=== PATIENT | male | born 1935 | race Caucasian/White ===

== ENCOUNTER 2017-10-06 07:32 | Outpatient (CLI) | payer MEDICARE, OTHER ==
[2014-09-29 10:08] VITALS: BP 112/55
[2017-10-06 08:04] LABS: MEAN CORPUSCULAR HEMOGLOBIN 30.7 pg (28.0-34.0); MEAN CORPUSCULAR VOLUME 94.4 fl (80.0-100.0)
[2017-10-06 08:29] LABS: eGFR (African) > 60; eGFR (Non-African) > 60
== END 2017-10-06 07:40 ==
LOC: LAB 07:32
PROVIDERS: ATTEND Internal Medicine Cardiovascular Disease
DX: E78.00 Pure hypercholesterolemia, unspecified (principal); I25.10 Atherosclerotic heart disease of native coronary artery without angina pectoris; I26.99 Other pulmonary embolism without acute cor pulmonale; I48.2 Chronic atrial fibrillation
CPT/HCPCS: 36415; 80053; 80061; 84443; 85027

== ENCOUNTER 2018-04-30 14:30 | Outpatient (CLI) | payer MEDICARE, OTHER ==
[2014-09-29 10:08] VITALS: BP 112/55
[2018-04-29 16:12] LABS: eGFR (Non-African) > 60
[2018-05-03 23:42] LABS: BASO % 0.5 % (0.0-1.5); EOS % 5.3 % (0.0-6.8); LYMPH ABS # 2.36 thou/uL (0.60-4.00); MCH. 29.8 pg (28.0-34.0); MCV 93.2 fL (80.0-100.0); MONOCYTE % 5.5 % (0.0-11.0); MONOCYTE ABS # 0.46 thou/uL (0.00-0.90); PLATELET COUNT 226 thou/uL (130-400)
== END 2018-04-30 14:32 ==
LOC: LAB 14:30
PROVIDERS: ATTEND Internal Medicine Cardiovascular Disease
DX: I25.10 Atherosclerotic heart disease of native coronary artery without angina pectoris (principal); I26.99 Other pulmonary embolism without acute cor pulmonale; I48.2 Chronic atrial fibrillation; E78.00 Pure hypercholesterolemia, unspecified
CPT/HCPCS: 36415; 80048; 85025

== ENCOUNTER 2018-08-04 13:47 | Emergency (ER) | payer MEDICARE, OTHER ==
[2018-08-04 14:07] VITALS: BP 99/85
[2018-08-04 14:09] LABS: BASOPHILS % 0.7 (0.0-1.5); EOSINOPHILS % 4.4 % (0.0-6.8); MEAN CORPUSCULAR HEMOGLOBIN 30.2 pg (28.0-34.0); MONOCYTES % 6.5 % (0.0-11.0); NEUTROPHILS # 5.9 # k/uL (1.4-7.7)
[2018-08-04] MEDS ORDERED: NITROGLYCERIN 0.4 MG TAB.SUBL SL ONE (17:59)
[2018-08-04] MEDS ORDERED: ASPIRIN 81 MG CHEW TAB ONE (18:00)
[2018-08-04 22:55] LABS: eGFR (Non-African) > 60
--- NOTE | 2018-08-05 04:58 | Diagnostic Imaging Report ---
SHIRLEY HUYNH [facility] [address] [facility] [address] [place], [place]. [address] Report Submission Date: Aug 04, 2018 2:51:24 PM ASSEMBLER MOLDED FRAMES Patient Study Name: BRIDGER BRITT Date: Aug 04, 2018 2:32:06 PM ASSEMBLER MOLDED FRAMES Modality Type: DX Gender: M Description: CHEST : 33 Institution: [facility] Physician: SHIRLEY HUYNH Portable chest History: Chest and arm pain Portable chest dated August 04, 2018 demonstrates top-normal heart size. Pulmonary vascularity is normal. Lungs are clear. Impression: Top normal heart size. No active disease. Electronically signed on Aug 04, 2018 2:51:24 PM ASSEMBLER MOLDED FRAMES by: Sophie FIGUEROA
--- NOTE | 2018-08-05 06:33 | Diagnostic Imaging Report ---
SHIRLEY HUYNH [facility] [address] [facility] [address] [place], [place]. [address] Report Submission Date: Aug 04, 2018 5:06:38 PM RELEASE ENGINEER Patient Study Name: BRIDGER BRITT Date: Aug 04, 2018 4:13:25 PM RELEASE ENGINEER Modality Type: CT\SR Gender: M Description: CT CHEST W/ PE PROTOC. : 34 Institution: [facility] Physician: SHIRLEY HUYNH Examination: CT chest pulmonary embolism History: SOA, CHEST PAIN, HX OF PE PT STATES POSTERIOR CHEST PAIN STARTING TODAY; HX OF PE (Hx) Comparison exam: Plain film chest dated 04 August 2018 Technique: CT chest pulmonic pulmonary embolism protocol. Findings: No evidence for luminal filling defect within the main pulmonary arteries to the 3rd order branch vessels bilaterally. Thoracic aorta without aneurysmal dilation. No evidence for dissection flap. Peripheral atherosclerotic disease and mural thickening. Lungs demonstrate dependent atelectasis bilaterally. Generalized interstitial prominence. No evidence for posterior pleural effusion or thickening. Nodular fullness involving the left lung lingula measuring approximately 1 cm. No mediastinal or josé miguel mass or pathologic adenopathy. Cardiac silhouette not enlarged. Osseous structures demonstrate degenerative changes. Lower neck structures and axilla regions are without gross irregularity. Large hiatal hernia. Gallstones. Impression: No evidence for pulmonary embolism by CT criteria. No evidence for thoracic aortic dissection or acute abnormality. Generalized interstitial prominence suggesting congestive edema. Nodule fullness involving the left lung lingula - correlation with older studies recommended, if none available, sequential follow up examinations recommended to confirm stability. Hiatal hernia. Gallstones. Electronically signed on Aug 04, 2018 5:06:38 PM RELEASE ENGINEER by: Guy FIGUEROA
== END 2018-08-04 19:47 | disposition left against medical advice (07) ==
LOC: ED 13:47
DX: R07.9 Chest pain, unspecified (principal); R79.89 Other specified abnormal findings of blood chemistry
CPT/HCPCS: 36415; 71045; 71275; 80053; 83880; 84484; 85025; 93005; 99284; 99285; Q9967; S1016

== ENCOUNTER 2018-09-20 13:19 | Outpatient (CLI) | payer MEDICARE, OTHER ==
[2018-09-20 13:39] LABS: MEAN CORPUSCULAR HEMOGLOBIN 30.5 pg (28.0-34.0)
[2018-09-20 14:01] LABS: eGFR (Non-African) > 60
== END 2018-09-20 13:20 ==
LOC: LAB 13:19
PROVIDERS: ATTEND Internal Medicine Cardiovascular Disease
DX: I10 Essential (primary) hypertension (principal); I25.10 Atherosclerotic heart disease of native coronary artery without angina pectoris; I48.0 Paroxysmal atrial fibrillation; E78.00 Pure hypercholesterolemia, unspecified
CPT/HCPCS: 36415; 80048; 85027

== ENCOUNTER 2019-05-24 12:09 | Outpatient (CLI) | payer MEDICARE, OTHER ==
--- NOTE | 2019-05-24 13:00 | Diagnostic Imaging Report ---
PATIENT MR#: [id number] PATIENT PATIENT NAME: BRIDGER BRITT DATE OF : 1935 REFERRING PHYSICIAN: EVAN GRIFFIN EXAM DATE: 05/24/2019 ACCESSION NUMBER: [id number] EXAM DESCRIPTION: FOOT 3 VIEWS OR MORE Right foot pain History: Right foot pain and bruising Finds: No prior. 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 No acute fracture or malalignment. Moderate hallux valgus deformity. Impression: Multiple chronic abnomalities as above. Read by: Dr. Nirmal Amato Transcribed by: Transcribed Date: Electronically signed by: Dr. Nirmal Amato Date signed: 05/24/2019 12:59:49 PM
--- NOTE | 2019-05-24 13:35 | Diagnostic Imaging Report ---
PATIENT MR#: [id number] PATIENT PATIENT NAME: BRIDGER BRITT DATE OF : 1935 REFERRING PHYSICIAN: EVAN GRIFFIN EXAM DATE: 05/24/2019 ACCESSION NUMBER: [id number] EXAM DESCRIPTION: ANKLE 3 VIEWS OR MORE Examination: Plain film right ankle History: RT FOOT PAIN AND BRUISING AND RT ANKLE PAIN. Findings: 3 views of the right ankle demonstrates osteopenia. Articular degenerative changes. No disp laced fracture lucency. Calcaneal spurs. Generalized soft tissue swelling. Joint effusion. Impression: Osteopenia and articular degenerative changes. No acute appearing cortical abnormality. G eneralized soft tissue swelling and joint effusion. Read by: Dr. Guy Beltre Transcribed by: Transcribed Date: Electronically signed by: Dr. Guy Beltre Date signed: 05/24/2019 1:34:49 PM
== END 2019-05-24 12:19 ==
LOC: RAD 12:09
PROVIDERS: ATTEND Podiatrist Foot & Ankle Surgery
DX: S90.31XA Contusion of right foot, initial encounter (principal); M25.571 Pain in right ankle and joints of right foot; X58.XXXA Exposure to other specified factors, initial encounter
CPT/HCPCS: 73610; 73630